=== PATIENT | male | born 1965 | race Caucasian/White ===

== ENCOUNTER 2021-08-26 14:07 | Emergency (ER) | payer OTHER ==
[2021-08-26] MEDS ORDERED: XYLOCAINE 1% HCL 20 ML MDV ONE (14:27)
[2021-08-26 14:48] VITALS: BP 146/78; PULSE 76; O2SAT 97
--- NOTE | 2021-08-26 14:55 | ERPHSYRPT ---
- History of Present Illness Source: patient Exam Limitations: no limitations Patient Subjective Stated Complaint: pt reports bleeding from a recent surgical incision, states he had a testicle removed r/t testicular CA, states he sat down to have a bowel movement and when he stood noticed a large amount of blood on the front of the stool. Triage Nursing Assessment: pt is aox3, pupils perrl, afebrile, resps easy and non labored, radial pulses strong and equal, cap refill < 3 seconds, pt skin pink warm dry. pt with 15 cm surgical incision to the left inguinal area, kristal are intact, bleeding is moderate at this time, no redness, discharge, odor noted. wound is well approximated. Physician History: 56 yo wm s/p L orchiectomy presents w bleeding from L inguinal orchiectomy site. Pt has no other complaints at this time. Timing/Duration: today Quality: painful Severity: mild Allergies/Adverse Reactions: No Known Drug Allergies Allergy (Verified 08/26/21 14:48) Home Medications: Aspirin EC 325 mg [Ecotrin 325 MG] 325 mg PO DAILY 05/17/15 [History] Furosemide 20 mg [Lasix 20 mg] 40 mg PO DAILY 05/17/15 [History] Omeprazole 20 MG [Prilosec 20 mg] 20 mg PO DAILY 05/17/15 [History] Potassium Chloride [K-Dur] 20 meq PO DAILY 05/17/15 [History] Gabapentin [Neurontin] 300 mg PO TID 03/12/16 [History] Multivitamin/Iron/Folic Acid [Centrum Complete Multivit Tab] 1 each PO DAILY 03/12/16 [History] Tamsulosin HCl 0.4 mg [Flomax 0.4 MG] 0.4 mg PO HS 03/12/16 [History] Baclofen 10 mg [Lioresal 10 mg] 10 mg PO BID 07/23/16 [History] Duloxetine HCl 30 mg [Cymbalta 30 MG Capsule] 30 mg PO HS 07/23/16 [History] Ibuprofen 200 mg [Motrin 200 mg] 600 mg PO TID 07/23/16 [History] Loratadine 10 mg [Claritin 10 mg] 10 mg PO HS 07/23/16 [History] Trazodone HCl [Desyrel] 150 mg PO HS 07/23/16 [History] Hx Tetanus, Diphtheria Vaccination/Date Given: Yes Hx Influenza Vaccination/Date Given: Yes Hx Pneumococcal Vaccination/Date Given: No Immunizations Up to Date: Yes Travel Risk - International Travel Have you traveled outside of the country in past 3 weeks: No - Coronavirus Screening Are you exhibiting any of the following symptoms?: No Close contact with a COVID-19 positive Pt in past 14-21 Days: No - Vaccine Status Have you recieved a Covid-19 vaccination: Yes 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: [employer] - Vaccination Dates Date of 2cond Vaccination (if applicable): unk - Review of Systems Constitutional: No Symptoms Eyes: No Symptoms Ears, Nose, & Throat: No Symptoms Respiratory: No Symptoms Cardiac: No Symptoms Abdominal/Gastrointestinal: No Symptoms Musculoskeletal: No Symptoms Skin: No Symptoms Neurological: No Symptoms Psychological: No Symptoms Endocrine: No Symptoms Hematologic/Lymphatic: No Symptoms Immunological/Allergic: No Symptoms - Past Medical History Pertinent Past Medical History: Yes Neurological History: No Pertinent History ENT History: No Pertinent History Cardiac History: Hypertension Respiratory History: No Pertinent History Endocrine Medical History: Diabetes Type II Musculoskeletal History: No Pertinent History GI Medical History: GERD History: No Pertinent History, Other Psycho-Social History: No Pertinent History Male Reproductive Disorders: Other Other Medical History: LE EDEMA, SCI[place] - Past Surgical History Past Surgical History: Yes Neuro Surgical History: No Pertinent History Cardiac: No Pertinent History Respiratory: No Pertinent History Gastrointestinal: No Pertinent History Genitourinary: No Pertinent History Musculoskeletal: No Pertinent History Male Surgical History: No Pertinent History Other Surgical History: under local only-rt wrist cyst removed, vasectomy. testicle removed 08/16/21 r/t testicular CA - Social History Smoking Status: Current every day smoker How long have you smoked: 30 yrs Exposure to second hand smoke: Yes Drug Use: none Patient Lives Alone: Yes - Nursing Vital Signs Nursing Vital Signs: Initial Vital Signs Temperature 97.9 F 08/26/21 14:20 Pulse Rate 76 08/26/21 14:20 Respiratory Rate 16 08/26/21 14:20 Blood Pressure 146/78 08/26/21 14:20 O2 Sat by Pulse Oximetry 97 08/26/21 14:20 Pain Scale Pain Intensity 4 Hypertensive - Physical Exam General Appearance: no apparent distress Eye Exam: PERRL/EOMI Ears, Nose, Throat Exam: normal ENT inspection Neck Exam: normal inspection Respiratory Exam: normal breath sounds, lungs clear, airway intact Cardiovascular Exam: regular rate/rhythm, normal heart sounds, normal peripheral pulses, capillary refill <2 sec, No murmur Gastrointestinal/Abdomen Exam: soft, normal bowel sounds, other (L inguinal orchiectomy site w bleeding from medial edge of incision) Male Genitalia Exam: other (Inguial area edematous w fading ecchymosis) Back Exam: normal inspection, normal range of motion Extremity Exam: normal inspection Neurologic Exam: alert, oriented x 3, cooperative, glove turner and former II-XII nml as tested Skin Exam: normal color, warm, dry Lymphatic Exam: No adenopathy SpO2 Interpretation: normal SpO2: 97 O2 Delivery: Room Air - Course Nursing assessment & vital signs reviewed: Yes Ordered Tests: Medication Summary Discontinued Medications Generic Name Dose Route Start Last Admin Trade Name Freq PRN Reason Stop Dose Admin Lidocaine HCl Confirm 08/26/21 14:27 Lidocaine Hcl 1% 20 Ml Mdv 20 Ml Ml Administered 08/26/21 14:28 Dose 1 ml .ROUTE .STK-MED ONE Lidocaine HCl 5 ml 08/26/21 15:16 08/26/21 15:18 Lidocaine Hcl 1% 20 Ml Mdv 20 Ml Ml IJ 08/26/21 15:17 5 ml STAT ONE Administration - Progress Progress: improved Progress Note: 08/26/21 14:54 L inguinal incision/Bleeding from medial aspect/Medial staple in only one edge of incision only and bleeding around site/Staple removed x1/Unable to re-staple incision/Anes w 1% Lido wo epi/Closed 3.0 Ethilon x4/No comps/Good hemostasis 08/26/21 17:28 Counseled pt/family regarding: diagnosis, need for follow-up - Departure Departure Disposition: Home Clinical Impression: Dehiscence of incision Condition: Stable Critical Care Time: No Referrals: SHAILESH MARIEE [Primary Care Provider] - Follow up/PCP as directed Instructions: Wound Care (DC) Additional Instructions: Follow up with your urologist in AM Return to ER for bleeding, temperature greater than 100.5, or increasing pain
[2021-08-26] MEDS ORDERED: XYLOCAINE 1% HCL 20 ML MDV IJ ONE (15:16)
== END 2021-08-26 15:15 | disposition home or self-care (01) ==
LOC: ED 14:07
DX: T81.31XA Disruption of external operation (surgical) wound, not elsewhere classified, initial encounter (principal); I10 Essential (primary) hypertension; E11.9 Type 2 diabetes mellitus without complications; Z72.0 Tobacco use; Z79.899 Other long term (current) drug therapy
CPT/HCPCS: 12020; 96372; 99284

== ENCOUNTER 2023-07-10 07:37 | Day surgery (SDC) | payer OTHER ==
--- NOTE | 2023-07-09 10:39 | HP ---
DATE OF SURGERY: 07/10/2023 HISTORY OF PRESENT ILLNESS: The patient is a 58-year-old male presents for endoscopy. He had a scope about seven years ago. He has been having some eating problems and having to go to the bathroom right away. He has been on metformin that might be contributing. No family history of any colon cancer. PAST MEDICAL HISTORY: Hyperlipidemia, benign prostatic hypertrophy, gastroesophageal reflux disease, hypertension, diabetes, chronic obstructive pulmonary disease, testicular cancer, skin cancer. PAST SURGICAL HISTORY: Orchiectomy. Cholecystectomy. Vasectomy. Skin biopsy. ALLERGIES: NKDA. MEDICATIONS: Multivitamins, Tadalafil, loratadine, metformin, vitamin D, Lisinopril, omeprazole, trazodone, tamsulosin, carbamazepine, gabapentin, Zyrtec, atorvastatin. FAMILY HISTORY: Alzheimer's. Lung cancer. Diabetes. Chronic obstructive pulmonary disease. SOCIAL HISTORY: Current smoker. REVIEW OF SYSTEMS: CONSTITUTIONAL: Denies fever or chills. CHEST: Denies shortness of breath. CVS: Denies chest pain. ABDOMEN: Denies abdominal pain. PHYSICAL EXAMINATION: GENERAL: No acute distress. CHEST: Nonlabored. No shortness of breath. CVS: Regular rate and rhythm. ABDOMEN: Soft. IMPRESSION: Screening. PLAN: Colonoscopy with Dr. Hernandez Atkinson. As dictated by Randi Donohue NP.
[2023-07-10] MEDS ORDERED: Lactated Ringers 1,000 ML IV ONE (07:45)
[2023-07-10] MEDS: Lactated Ringers 1,000 ML IV SCH (07:49)
[2023-07-10 08:03] VITALS: RESP 18; TEMP 96.2
[2023-07-10] MEDS ORDERED: DIPRIVAN 200 MG/20 ML IV ONE ×2 (09:59→10:12)
[2023-07-10] MEDS ORDERED: GlucaGen 1 MG ONE (10:10)
[2023-07-10 10:58] VITALS: BP 141/84; PULSE 74; O2SAT 97
--- NOTE | 2023-07-10 11:25 | OP ---
SURGERY DATE/TIME: 07/10/2023 1000 PREOPERATIVE DIAGNOSIS: Screening follow up polyps. POSTOPERATIVE DIAGNOSIS: Normal. PROCEDURE: Colonoscopy complete to cecum. SURGEON: Hernandez Atkinson M.D. SERVICE ATTENDANT: Ayla Thomas M.D., [facility]. ANESTHESIA: MAC. COMPLICATIONS: None. CONDITION: Stable. FINDINGS: Normal. INDICATION: The patient presents seven years out from previous scope. He has had polyps in the past. DESCRIPTION OF PROCEDURE: He was taken to endoscopy. Left lateral decubitus position. Anal digital examination satisfactory. Prostate satisfactory. Prep was excellent. Scope advanced to the cecum. Ileocecal valve and appendiceal orifice was normal. He did have some spasm. He was given some Glucagon. He has had a little constipation and a little bit of loose stool. I believe he probably has a wisp of spastic colon. He did not have any diverticulosis. The scope on circumferential withdrawal ascending, hepatic, transverse, splenic, descending, sigmoid, rectum and anus was excellent. He has had some Glucagon and the spasm was gone and the view was excellent. Follow up in five years discussed with his .
== END 2023-07-10 11:05 | disposition home or self-care (01) ==
LOC: SDC 07:37
PROVIDERS: ATTEND Surgery
DX: Z12.11 Encounter for screening for malignant neoplasm of colon (principal); Z09 Encounter for follow-up examination after completed treatment for conditions other than malignant neoplasm; Z86.010 Personal history of colon polyps; Z85.47 Personal history of malignant neoplasm of testis; E11.9 Type 2 diabetes mellitus without complications
CPT/HCPCS: 82947; 93005; J1610; J2704

== ENCOUNTER 2023-11-26 08:42 | Day surgery (SDC) | payer OTHER ==
[2023-11-26] MEDS ORDERED: Sodium Chloride 0.9(Preservative Free) 10 ML IJ ONE (08:43)
[2023-11-26] MEDS ORDERED: Decadron 4 MG INJ IV ONE (08:43)
[2023-11-26] MEDS ORDERED: Lactated Ringers 1,000 ML IV ONE (09:52)
[2023-11-26] MEDS ORDERED: DIPRIVAN 200 MG/20 ML IV ONE ×2 (10:06→10:15)
--- NOTE | 2023-11-26 13:09 | XRAY ---
24 seconds of fluoroscopy was used in surgery for a right L3-L5 transforaminal TENA.
--- NOTE | 2023-11-27 11:46 | XRAY ---
24 seconds of fluoroscopy was used in surgery for a right L3-L5 transforaminal TENA.
== END 2023-11-26 10:45 | disposition home or self-care (01) ==
LOC: SDC-PAIN 08:42
PROVIDERS: ATTEND Psychiatry & Neurology Pain Medicine
DX: M54.16 Radiculopathy, lumbar region (principal); E11.9 Type 2 diabetes mellitus without complications
CPT/HCPCS: 64483; 64484; 72100; 77003; 82947; J1100; J2704; Q9966

== ENCOUNTER 2024-03-03 07:51 | Day surgery (SDC) | payer OTHER ==
[2024-03-03 08:54] LABS: Absolute Neutrophil Ct (ANC) 8.09 x10^3/uL (1.78-5.38); BASOPHIL % 0.4 % (0.2-1.2); Basophil (Absolute #) 0.04 x10^3/uL (0.01-0.08); Eosinophil % 1.6 % (0.8-7.0); Eosinophil (Absolute #) 0.17 x10^3/uL (0.04-0.54); Hematocrit 42.9 % (40.1-51.0); Hemoglobin 14.3 g/dL (13.7-17.5); IMMATURE GRAN # 0.04 x10^3u/L (0.001-0.031); IMMATURE GRAN % 0.4 % (0.001-0.429); Lymphocytes % 16.6 % (21.8-53.1); Mean Cell Volume 89.4 fL (79.0-92.2); Mean Corpuscular Hemoglobin 29.8 pg (25.7-32.2); Mean Corpuscular Hgb Concent. 33.3 g/dL (32.3-36.5); Mean Platelet Volume 9.4 fL (9.4-12.4); Monocyte (Absolute #) 0.72 x10^3/uL (0.30-0.82); Monocytes % 6.6 % (5.3-12.2); Neutrophil % 74.4 % (34.0-67.9); Platelet Count 284 x10^3/uL (163-337); Red Cell Distribution Width 13.5 % (11.6-14.4); White Blood Count 10.9 x10^3/uL (4.23-9.07)
[2024-03-03 09:16] LABS: INR 0.89 (0.8-3.0); PROTIME 9.8 SECONDS (9.4-12.5)
[2024-03-03 11:03] LABS: ALBUMIN 3.9 g/dL (3.5-5.0); ANION GAP 10.2 MEQ/L (5-15); BILIRUBIN,TOTAL 0.3 mg/dL (0.2-1.3); Creatinine 1 0.96 mg/dL (0.66-1.25); EST GLOMERULAR FILTRATION RATE 91.1 ML/MIN; Potassium 4.2 mmol/L (3.5-5.1); TSH, 3RD Generation 1.346 mIU/L (0.470-4.680); Total Protein 7.2 g/dL (6.3-8.2)
== END 2024-03-03 08:23 | disposition home or self-care (01) ==
LOC: SDC-PAIN 07:51
PROVIDERS: ATTEND Psychiatry & Neurology Pain Medicine
DX: E11.65 Type 2 diabetes mellitus with hyperglycemia (principal); Z53.8 Procedure and treatment not carried out for other reasons
CPT/HCPCS: 36415; 80053; 80061; 82947; 83036; 83721; 84443; 85025; 85610; 85730

== ENCOUNTER 2024-04-14 08:39 | Day surgery (SDC) | payer OTHER ==
[2024-04-14] MEDS ORDERED: Sodium Chloride 0.9(Preservative Free) 10 ML IJ ONE (08:40)
[2024-04-14] MEDS ORDERED: dexAMETHasone sodium phosphate IJ ONE (08:40)
[2024-04-14] MEDS ORDERED: Depo-Medrol 40 MG/ML IM ONE (08:40)
[2024-04-14] MEDS ORDERED: BUPIVACAINE 0.5% VIAL IJ ONE (08:40)
[2024-04-14] MEDS ORDERED: propofoL IV ONE (09:59)
--- NOTE | 2024-04-14 11:58 | XRAY ---
Indication: Left L3-L5 transforaminal TENA. Intraoperative fluoroscopy provided for 29 seconds. 4 digital spot image submitted for interpretation demonstrates posterior needle tips projecting over the expected left L3 and L4 nerve roots. Small amount of contrast injected for needle tip placement. Correlate with intraoperative findings/report.
--- NOTE | 2024-04-14 12:01 | XRAY ---
Indication: Right hip injection. Intraoperative fluoroscopy provided for 7 seconds. Single digital spot image obtained prone submitted for interpretation demonstrates needle tip projecting lateral to right femur neck. Small amount of contrast injected for needle tip placement. Correlate with intraoperative findings/report.
--- NOTE | 2024-04-14 12:30 | XRAY ---
7 seconds of fluoroscopy was used in surgery for a right intra-articular hip injection.
--- NOTE | 2024-04-14 12:30 | XRAY ---
29 seconds of fluoroscopy was used in surgery for a left L3-L5 transforaminal TENA.
== END 2024-04-14 10:32 | disposition home or self-care (01) ==
LOC: SDC-PAIN 08:39
PROVIDERS: ATTEND Psychiatry & Neurology Pain Medicine
DX: M54.16 Radiculopathy, lumbar region (principal); M16.11 Unilateral primary osteoarthritis, right hip; E11.9 Type 2 diabetes mellitus without complications
CPT/HCPCS: 20610; 64483; 64484; 72100; 73501; 77002; 77003; 82947; J1100; J2704; Q9966

== ENCOUNTER 2024-07-21 09:18 | Day surgery (SDC) | payer OTHER ==
[2024-07-21] MEDS ORDERED: Sodium Chloride 0.9(Preservative Free) 10 ML IJ ONE (09:19)
[2024-07-21] MEDS ORDERED: dexAMETHasone sodium phosphate IJ ONE (09:19)
[2024-07-21] MEDS ORDERED: propofoL IV ONE ×2 (11:14→11:20)
[2024-07-21] MEDS ORDERED: Lactated Ringers 1,000 ML IV ONE (12:17)
--- NOTE | 2024-07-21 12:27 | XRAY ---
Indication: Right L3-L5 transforaminal TENA. Intraoperative fluoroscopy provided for 1 minute 35 seconds. 10 digital spot images submitted for interpretation demonstrate posterior needle tips projecting over expected right L3 and L4 nerve roots. Small amount of contrast injected for needle tip placement. Correlate with intraoperative findings/report.
--- NOTE | 2024-07-21 13:07 | XRAY ---
One minute and 35 seconds of fluoroscopy was used in surgery for a right L3-L5 transforaminal TENA.
== END 2024-07-21 12:02 | disposition home or self-care (01) ==
LOC: SDC-PAIN 09:18
PROVIDERS: ATTEND Psychiatry & Neurology Pain Medicine
DX: M54.16 Radiculopathy, lumbar region (principal); E11.9 Type 2 diabetes mellitus without complications
CPT/HCPCS: 64483; 64484; 72100; 82947; J1100; J2704; Q9966